=== PATIENT | male | born 1965 | race Caucasian/White ===

== ENCOUNTER 2019-05-11 09:55 | Emergency (ER) | payer SELFPAY ==
[~2019-05-11] VITALS: Ht 160 cm; Wt 65.0 kg
[~2019-05-11 09:55] MED LIST: ACET500C5 PO
[2019-05-11 10:00] VITALS: BP 135/78; PULSE 78; RESP 20; Ht 160 cm; Wt 65.0 kg
== END 2019-05-11 10:36 | disposition home or self-care (01) ==
LOC: FTE 09:55
DX: Z48.02 Encounter for removal of sutures (principal)
CPT/HCPCS: 99281